=== PATIENT | male | born 1985 | race Caucasian/White ===

== ENCOUNTER → 2018-06-05 20:29 | Outpatient (CLI) | payer SELFPAY | PROVIDERS: Family Provider Family Medicine; PCP Family Medicine; Visit Provider Physician Assistant | DX: J02.9 Acute pharyngitis, unspecified (principal) | CPT/HCPCS: 87070; 87077; 87147 ==

== ENCOUNTER 2022-10-28 15:47 | Emergency (ER) | payer SELFPAY ==
[2022-10-28 16:29] VITALS: BP 139/79; PULSE 81; RESP 16; TEMP 36.6; O2SAT 98; BMI 26.4
--- NOTE | 2022-10-28 16:32 | DI.RAD.S_ITS ---
PROCEDURE: XR ANKLE LT MIN 3V INDICATIONS: ankle injury TECHNIQUE: 3 views of the ankle were acquired. COMPARISON: None. FINDINGS: Bones: Avulsion fracture at the tip of the lateral malleolus. No additional malleolar fractures. Soft tissues: Small tibiotalar joint effusion. Achilles tendon appears normal. Soft tissue swelling about the ankle. IMPRESSION: Avulsion fracture at the tip of the lateral malleolus. No features of an unstable fracture. Dictated by: Gopi Rodriguez M.D. on 10/28/2022 at 16:43 Approved by: Gopi Rodriguez M.D. on 10/28/2022 at 16:45
--- NOTE | 2022-10-28 17:22 | PC.NURSE ---
pt took ibuprofen 800mg at 1400 today.
--- NOTE | 2022-10-28 17:37 | ED.LOWEXIN ---
HPI - Extremity Injury (Lower) <Shiela Leonardo PA-C - Last Filed: 10/28/22 17:56> General Chief Complaint: Extremity Injury, Lower Stated Complaint: lt ankle injury Time Seen by Provider: 10/28/22 17:36 Source: patient Mode of arrival: Wheelchair History of Present Illness HPI Narrative: This is a previously healthy 37-year-old male who presents with concern for left ankle injury. 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 Since that time he is not been able to walk on it it is quite painful especially on the outside of his ankle. Denies any previous surgeries or injuries to this ankle. He has taken 800 mg of ibuprofen with limited relief no other treatments at home. He states this is not going to be a work claim as he owns his own business. Patient denies hitting his head, any headache vision change neck pain loss of consciousness or any other injury. Related Data Previous Rx's Medication Instructions Recorded amoxicillin 500 mg capsule 500 mg PO BID #20 caps 06/05/18 Allergies Allergy/AdvReac Type Severity Reaction Status Date / Time venom-honey bee Allergy Severe Swelling Verified 06/05/18 19:27 [BEE VENOM (HONEY BEE)] Review of Systems <Shiela Leonardo PA-C - Last Filed: 10/28/22 17:56> Review of Systems Narrative: See HPI Patient History <Shiela Leonardo PA-C - Last Filed: 10/28/22 17:56> Family History Mother Cancer Social History Smoking Status: Never smoker Smoking Status: Never smoker alcohol intake frequency: 0-2 drinks per day Substance Use Type: does not use Exam <Shiela Leonardo PA-C - Last Filed: 10/28/22 17:56> Narrative Exam Narrative: GENERAL: 37 year old patient appears stated age. Well-developed patient, in mild distress. HEAD: Atraumatic. Normocephalic. EYES: Pupils equal round and reactive. Extraocular motions intact. No scleral icterus. No injection or drainage. ENT: Nose without bleeding, purulent drainage. Airway patent. NECK: Trachea midline. Non tender CARDIOVASCULAR: Regular rate and rhythm RESPIRATORY: No respiratory distress or increased work of breathing GASTROINTESTINAL: Abdomen soft, non-tender, nondistended. EXTREMITIES: In the injured left lower extremity there is moderate swelling of the ankle most prominent over the lateral malleolus, patient is tender over the distal fibula, with exquisite tenderness over the lateral malleolus. Patient also has some tenderness over the medial malleolus and over the anterior ankle. The bones of the foot are nontender. Patient has significantly reduced range of motion with dorsiflexion of the foot 2nd to pain. There is tenderness over the ATFL with associated swelling. Patient has 2+ pedal pulses. Skin is pink and unbroken with sensation intact. No other edema or joint tenderness. NEURO: AOx3. SKIN: No rash or erythema of visible areas Initial Vital Signs Initial Vital Signs: Vital Signs Temperature 97.9 F 10/28/22 16:29 Pulse Rate 81 10/28/22 16:29 Respiratory Rate 16 10/28/22 16:29 Blood Pressure 139/79 10/28/22 16:29 Pulse Oximetry 98 10/28/22 16:29 Oxygen Delivery Method Room Air 10/28/22 16:29 <Merced Ackerman DO - Last Filed: 10/29/22 08:20> Initial Vital Signs Initial Vital Signs: Vital Signs Temperature 97.9 F 10/28/22 16:29 Pulse Rate 81 10/28/22 16:29 Respiratory Rate 16 10/28/22 16:29 Blood Pressure 139/79 10/28/22 16:29 Pulse Oximetry 98 10/28/22 16:29 Oxygen Delivery Method Room Air 10/28/22 16:29 Course <Shiela Leonardo PA-C - Last Filed: 10/28/22 17:56> Orders Ordered: ED Orders 10/28/22 16:32 XR ankle LT min 3V Stat Vital Signs Vital signs: Vital Signs - 8 hr 10/28/22 16:29 Temperature 97.9 F Pulse Rate 81 Respiratory Rate 16 Blood Pressure 139/79 Pulse Oximetry 98 Oxygen Delivery Method Room Air <Merced Ackerman DO - Last Filed: 10/29/22 08:20> Orders Ordered: ED Orders 10/28/22 16:32 XR ankle LT min 3V Stat Vital Signs Vital signs: Vital Signs - 8 hr 10/28/22 16:29 Temperature 97.9 F Pulse Rate 81 Respiratory Rate 16 Blood Pressure 139/79 Pulse Oximetry 98 Oxygen Delivery Method Room Air MDM - Extremity Injury (Lower) <Shiela Leonardo PA-C - Last Filed: 10/28/22 17:56> Differential Diagnosis Differential diagnosis: Likely ankle sprain and strain, ankle fracture and other (fall) Medical Records Attestation: I reviewed the patient's medical records. Imaging Data Extremity x-ray #1: My Impression: Agree with radiologist's interpretation Radiologist's Impression: [address] [address] XRay Report Signed Patient: Jake Yanes MR#: [id number] : 1985 Acct:[id number] Age/Sex: 37 / M Date of Service: 10/28/22 Loc: ED Accession Number: [id number] ?? Procedure: XR ankle LT min 3V Ordering Provider: Merced Ackerman D.O. PROCEDURE:? XR ANKLE LT MIN 3V ? INDICATIONS:? ankle injury ? TECHNIQUE:? 3 views of the ankle were acquired.? ? COMPARISON:? None. ? FINDINGS:? ? Bones:? Avulsion fracture at the tip of the lateral malleolus.? No additional malleolar fractures. ? Soft tissues:? Small tibiotalar joint effusion.? Achilles tendon appears normal.? Soft tissue swelling about the ankle. ? ? IMPRESSION:? Avulsion fracture at the tip of the lateral malleolus.? No features of an unstable fracture. ? Dictated by: Gopi Rodriguez M.D. on 10/28/2022 at 16:43 ? ? Approved by: Gopi Rodriguez M.D. on 10/28/2022 at 16:45?? Treatment and disposition Shared decision making:: Shared decision-making was used in determining the patient's plan of care today in the emergency department and plan for outpatient follow-up. Discharge Plan Departure Patient Disposition: Home Clinical Impression: Ankle fracture, left, Ankle sprain and strain Activity Restrictions/Additional Instructions: *You have been diagnosed with [avulsion fracture of the left ankle, sprain/strain] *What to do: *Please continue to take your regular medications as directed. [ ] New medication prescriptions sent to your pharmacy: [ ] [ ] New medication written as a paper prescription [* ] No new medications given *Please follow up with your primary care provider in 2-3 days, call for an appointment. Let them know you were seen in the Emergency Department and that we ask that you be seen in follow up. We will electronically transmit a record of today's note if your PCP is in our system. I recommend using the RI CE treatment keeping your leg elevated as much as possible, I would like you to use the crutches provided to stay off of it and be nonweightbearing at least until you see orthopedics, possibly for up to 3 weeks or more depending on how you are doing. We have placed you in a supportive orthopedic boot today I would like you to wear this most of the time although course it is okay to remove your foot occasionally to give it some air. You have a small avulsion fracture at the tip of your fibula the small bone on the outside of your lower leg. You also have sprain with reduced range of motion of her ankle. I have included our orthopedic on-call provider information below although your welcome to see an orthopedic doctor of your choice I would encourage you to get follow-up and be seen within the next week. Please use Tylenol and ibuprofen for pain alternating. *If you do not have a primary care provider please contact the [facility] Resource line at [phone]. They will ask some questions about your medical history and help get you set up with a doctor in the community. *Return to Emergency Department if you should have any new, worsening or concerning symptoms, such as [fever greater than 101 F, shaking chills, worsening pain, persistent vomiting or other bothersome symptoms] Prescriptions: No Action amoxicillin 500 mg capsule 500 mg PO BID Qty: 20 0RF Referrals: Blanquita Morales MD [Physician] - Stand Alone Forms: Patient Portal/API <Merced Ackerman DO - Last Filed: 10/29/22 08:20> Cosign ED Attending Cosignature Attestation: I was immediately available in the department for consultation. Documentation has been reviewed.
== END 2022-10-28 18:01 | disposition home or self-care (01) ==
PROVIDERS: Emergency Provider Student in an Organized Health Care Education/Training Program; Family Provider Family Medicine
DX: S82.62XA Displaced fracture of lateral malleolus of left fibula, initial encounter for closed fracture (principal); W11.XXXA Fall on and from ladder, initial encounter
CPT/HCPCS: 73610; 99283

== ENCOUNTER 2023-09-11 16:32 | Emergency (ER) | payer SELFPAY ==
[2023-09-11] VITALS (17 sets, daily range): BP systolic 135–184; BP diastolic 73–113; PULSE 73–93; RESP 10–22; TEMP 36.7; O2SAT 94–99; BMI 27.0
--- NOTE | 2023-09-11 17:01 | DI.RAD.S_ITS ---
PROCEDURE: XR CHEST 1V INDICATIONS: seizure TECHNIQUE: One view of the chest was acquired. COMPARISON: [facility], , CHEST 2 VIEW, 04/19/2011, 12:17. FINDINGS: Surgical changes and devices: None. Lungs and pleura: Lungs are clear. No pleural effusions or pneumothorax. Mediastinum: Mediastinal contours appear normal. Heart size is normal. Bones and chest wall: No suspicious bony lesions. Overlying soft tissues appear unremarkable. IMPRESSION: No acute cardiopulmonary abnormalities or focal airspace disease. Dictated by: Juan Manuel Harrison M.D. on 09/11/2023 at 17:41 Approved by: Juan Manuel Harrison M.D. on 09/11/2023 at 17:41
--- NOTE | 2023-09-11 17:02 | DI.CT.S_ITS ---
PROCEDURE: CT HEAD/BRAIN WO CON INDICATIONS: reported new onset seizure activity TECHNIQUE: Noncontrast 4.5 mm thick angled axial sections acquired from the foramen magnum to the vertex, with coronal and sagittal reformats. For radiation dose reduction, the following was used: automated exposure control, adjustment of mA and/or kV according to patient size. COMPARISON: [facility], RG, CT HEAD W/O CONTRAST, 02/05/2002, 8:08. [facility], CR, XR CHEST 1V, 09/11/2023, 17:02. FINDINGS: Image quality: Mild streak artifact can be seen through the skull base. CSF spaces: Basal cisterns are patent. No extra-axial fluid collections. Ventricles are normal in size and shape. Brain: No midline shift. No intracranial masses or hemorrhage. Renee-white matter interface is normal. Skull and face: Calvarium and visualized facial bones are intact, without suspicious lesions. Sinuses: There is mild mucosal thickening within the ethmoid air cells, with milder mucosal thickening elsewhere within the paranasal sinuses. No abnormal fluid is seen within the mastoid air cells. IMPRESSION: Unremarkable intracranial study, without a cause of seizure identified. To the limits of this noncontrast study, no findings masses or mass effect can be seen. Dictated by: Farhad Grissom M.D. on 09/11/2023 at 16:53 Approved by: Farhad Grissom M.D. on 09/11/2023 at 16:54
[2023-09-11 17:07] LABS: Add Manual Diff / Slide Review NO; Basophils Absolute Auto 100 /uL (0-100); Basophils Percent Auto 0.7 % (0-2); Eosinophils Absolute Auto 100 /uL (0-450); Eosinophils Percent Auto 1.4 % (2-4); Hematocrit 42.9 % (41-53); Hemoglobin 14.8 g/dL (13.5-17.5); Lymphocytes Absolute Auto 2200 /uL (1100-4500); Lymphocytes Percent Auto 29.5 % (25-40); Mean Corpuscular HGB Conc 34.5 % (30-36); Mean Corpuscular Hemoglobin 30.4 PG (26-34); Mean Corpuscular Volume 88.1 fL (80-100); Monocytes Absolute Auto 600 /uL (0-900); Monocytes Percent Auto 7.9 % (3-14); Neutrophils Absolute Auto 4600 /uL (1500-7000); Neutrophils Percent Auto 60.5 % (50-75); Platelet Count 199 X10^3/uL (150-400); Red Blood Cell Count 4.86 X10^6/uL (4.5-5.9); Red Cell Distribution Width 13.4 % (11.6-14.8); White Blood Cell Count 7.6 X10^3/uL (4.5-11.0)
[2023-09-11 17:17] LABS: Alanine Aminotransferase 20 IU/L (<50); Albumin 4.7 g/dL (3.5-5.0); Alkaline Phosphatase 58 U/L (38-126); Aspartate Aminotransferase 26 IU/L (17-59); BUN Creatinine Ratio 22.2 (6-22); Bilirubin Total 0.6 mg/dL (0.2-1.3); Blood Urea Nitrogen 20 mg/dL (9-20); Calcium 9.4 mg/dL (8.4-10.2); Carbon Dioxide 27 mmol/L (22-32); Chloride 106 mmol/L (98-107); Estimated Glomerular Filt Rate > 60 mL/min (>60); Globulin 2.4 g/dL (1.7-4.1); Glucose 148 mg/dL (70-100); HEMOLYSIS < 15 (0-50); Potassium 3.8 mmol/L (3.4-5.1); Sodium 139 mmol/L (137-145); Total Protein 7.1 g/dL (6.3-8.2)
--- NOTE | 2023-09-11 17:21 | ED.SEIZURE ---
HPI - Seizure <Merced Ackerman DO - Last Filed: 09/12/23 07:45> General Chief Complaint: Seizure Stated Complaint: states seizures Time Seen by Provider: 09/11/23 17:20 Source: patient Mode of arrival: Ambulatory Limitations: no limitations History of Present Illness HPI Narrative: 38-year-old male with no reported medical issues who describes having a seizure a year ago he was never evaluated for and then having several seizure-like episodes this week. He states he can feel an onset of seizure activity shaking he has a brief loss of consciousness and then we will sort of awakened. He states it lasts about 3-4 minutes. He has noticed headaches on the left side, he has had some numbness and weakness on his right side. He states he noticed some lumps on the side of his head as well. He states he has had some nausea and vomiting intermittently this week. Occasional chest pain, no shortness of breath. States no abdominal pain no issues with bowel movements. He did have urinary incontinence with 1 of these episodes. They have not been witnessed by other individuals. He is present with his spouse who notes that he would significant personality change about 4 months ago. She states it actually led to them being . Patient does not have any known medical issues. No known prescription medications. Had prior surgery on his shoulder. No known drug allergies. Patient denies any tobacco, no regular alcohol use, denies any recreational drugs. Related Data Previous Rx's Medication Instructions Recorded hydroxyzine HCl 25 mg tablet 25 mg PO TID PRN anxiety #60 tabs 09/11/23 Allergies Allergy/AdvReac Type Severity Reaction Status Date / Time venom-honey bee Allergy Severe Swelling Verified 09/11/23 17:06 [BEE VENOM (HONEY BEE)] Review of Systems <Merced Ackerman DO - Last Filed: 09/12/23 07:45> Review of Systems ROS Unobtainable: All systems reviewed & are unremarkable except as noted in HPI and below Patient History <Merced Ackerman DO - Last Filed: 09/12/23 07:45> Family History Mother Cancer Social History Smoking Status: Never smoker Smoking Status: Never smoker alcohol intake frequency: other Substance Use Type: marijuana Exam <Merced Ackerman DO - Last Filed: 09/12/23 07:45> Narrative Exam Narrative: GEN: well nourished, well appearing male, alert and oriented x 3, patient appears to be in mild distress. HEENT: Atraumatic, pupils are equal round reactive to light, extraocular movements are intact, no nystagmus, nares are clear, patient some slight swelling in the posterior left auricle, was like possible lymph node is nontender no erythema no other changes. About a cm in size. TMs are clear with no fluid, there is no conjunctival pallor. Throat is clear without any exudates, erythema, tonsillar enlargement or uvular deviation HEART: Regular rate and rhythm without murmur, clicks, rubs. No carotid bruits, pulses are equal in upper and lower extremities LUNGS:Lungs clear to auscultation, no wheezes, rales, crackles, chest moves symmetrically ABD:bowel sounds normal, soft, non-tender, no guarding, rebound, rigidity, no masses noted, no hepatosplenomegaly :No CVA tenderness MSCL: Non-tender, no muscle atrophy, muscles strength 5/5 upper and lower extremities, full range of motion, normal gait NEURO:CN 2-12 intact, sensation normal, reflexes 2/4 upper and lower extremities. finger nose finger test normal, heel cervantes test normal SKIN: No rash, erythema or other skin changes Initial Vital Signs Initial Vital Signs: Vital Signs Temperature 98.1 F 09/11/23 16:44 Pulse Rate 90 09/11/23 16:44 Respiratory Rate 18 09/11/23 16:44 Blood Pressure 159/91 H 09/11/23 16:44 Pulse Oximetry 99 09/11/23 16:44 Oxygen Delivery Method Room Air 09/11/23 16:44 <Merced Mac MD - Last Filed: 09/12/23 01:33> Initial Vital Signs Initial Vital Signs: Vital Signs Temperature 98.1 F 09/11/23 16:44 Pulse Rate 90 09/11/23 16:44 Respiratory Rate 18 09/11/23 16:44 Blood Pressure 159/91 H 09/11/23 16:44 Pulse Oximetry 99 09/11/23 16:44 Oxygen Delivery Method Room Air 09/11/23 16:44 Course <Merced Ackerman DO - Last Filed: 09/12/23 07:45> Orders Ordered: Discontinued Medications Levetiracetam 1,000 mg/ Sodium (Chloride) 110 mls @ 440 mls/hr IV NOW ONE Stop: 09/11/23 17:21 Last Infusion: 09/11/23 17:52 Dose: Infused Documented By: Admin: 09/11/23 17:30 Dose: 440 mls/hr Documented By: RB Vital Signs Vital signs: Vital Signs - 8 hr 09/11/23 17:45 09/11/23 17:45 09/11/23 18:00 Pulse Rate 93 H 89 Respiratory Rate 21 19 Blood Pressure 181/98 H Pulse Oximetry 95 95 Oxygen Delivery Method 09/11/23 18:01 09/11/23 18:01 09/11/23 18:15 Pulse Rate 93 H 91 H Respiratory Rate 18 22 Blood Pressure 184/92 H Pulse Oximetry 96 96 Oxygen Delivery Method 09/11/23 18:15 09/11/23 18:28 09/11/23 18:28 Pulse Rate 79 Respiratory Rate 13 Blood Pressure 175/113 H 154/73 H Pulse Oximetry 99 Oxygen Delivery Method 09/11/23 18:30 09/11/23 18:30 09/11/23 18:45 Pulse Rate 76 77 Respiratory Rate 12 10 L Blood Pressure 154/76 H Pulse Oximetry 97 95 Oxygen Delivery Method 09/11/23 18:45 09/11/23 18:53 09/11/23 18:53 Pulse Rate 75 Respiratory Rate 12 Blood Pressure 148/80 H 151/90 H Pulse Oximetry 96 Oxygen Delivery Method 09/11/23 18:54 09/11/23 19:00 09/11/23 19:00 Pulse Rate 73 78 Respiratory Rate 16 12 Blood Pressure 151/74 H 161/91 H Pulse Oximetry 94 95 Oxygen Delivery Method Room Air 09/11/23 19:30 09/11/23 19:30 Pulse Rate 74 Respiratory Rate 12 Blood Pressure 145/81 H Pulse Oximetry 97 Oxygen Delivery Method <Merced Mac MD - Last Filed: 09/12/23 01:33> Orders Ordered: Discontinued Medications Levetiracetam 1,000 mg/ Sodium (Chloride) 110 mls @ 440 mls/hr IV NOW ONE Stop: 04/14/24 17:21 Last Infusion: 09/11/23 17:52 Dose: Infused Documented By: Admin: 09/11/23 17:30 Dose: 440 mls/hr Documented By: RB Vital Signs Vital signs: Vital Signs - 8 hr 09/11/23 17:45 09/11/23 17:45 09/11/23 18:00 Pulse Rate 93 H 89 Respiratory Rate 21 19 Blood Pressure 181/98 H Pulse Oximetry 95 95 Oxygen Delivery Method 09/11/23 18:01 09/11/23 18:01 09/11/23 18:15 Pulse Rate 93 H 91 H Respiratory Rate 18 22 Blood Pressure 184/92 H Pulse Oximetry 96 96 Oxygen Delivery Method 09/11/23 18:15 09/11/23 18:28 09/11/23 18:28 Pulse Rate 79 Respiratory Rate 13 Blood Pressure 175/113 H 154/73 H Pulse Oximetry 99 Oxygen Delivery Method 09/11/23 18:30 09/11/23 18:30 09/11/23 18:45 Pulse Rate 76 77 Respiratory Rate 12 10 L Blood Pressure 154/76 H Pulse Oximetry 97 95 Oxygen Delivery Method 09/11/23 18:45 09/11/23 18:53 09/11/23 18:53 Pulse Rate 75 Respiratory Rate 12 Blood Pressure 148/80 H 151/90 H Pulse Oximetry 96 Oxygen Delivery Method 09/11/23 18:54 09/11/23 19:00 09/11/23 19:00 Pulse Rate 73 78 Respiratory Rate 16 12 Blood Pressure 151/74 H 161/91 H Pulse Oximetry 94 95 Oxygen Delivery Method Room Air 09/11/23 19:30 09/11/23 19:30 Pulse Rate 74 Respiratory Rate 12 Blood Pressure 145/81 H Pulse Oximetry 97 Oxygen Delivery Method MDM - Seizure <Merced Ackerman, DO - Last Filed: 09/12/23 07:45> Lab Data 09/11/23 16:48 09/11/23 16:48 Labs: Lab Results 09/11/23 09/11/23 09/11/23 Range/Units 16:48 19:16 19:16 WBC 7.6 (4.5-11.0) X10^3/uL RBC 4.86 (4.5-5.9) X10^6/uL Hgb 14.8 (13.5-17.5) g/dL Hct 42.9 (41-53) % MCV 88.1 (80-100) fL MCH 30.4 (26-34) PG MCHC 34.5 (30-36) % RDW 13.4 (11.6-14.8) % Plt Count 199 (150-400) X10^3/uL Neut % (Auto) 60.5 (50-75) % Lymph % (Auto) 29.5 (25-40) % [place] % (Auto) 7.9 (3-14) % Eos % (Auto) 1.4 L (2-4) % Baso % (Auto) 0.7 (0-2) % Neut # (Auto) 4600 (9363-8754) /uL Lymph # (Auto) 2200 (1135-6424) /uL [place] # (Auto) 600 (0-900) /uL Eos # (Auto) 100 (0-450) /uL Baso # (Auto) 100 (0-100) /uL Sodium 139 (137-145) mmol/L Potassium 3.8 (3.4-5.1) mmol/L Chloride 106 (98-107) mmol/L Carbon Dioxide 27 (22-32) mmol/L BUN 20 (9-20) mg/dL Creatinine 0.90 (0.66-1.25) mg/dL Estimated GFR > 60 (>60) mL/min BUN/Creatinine Ratio 22.2 H (6-22) Glucose 148 H (70-100) mg/dL Calcium 9.4 (8.4-10.2) mg/dL Total Bilirubin 0.6 (0.2-1.3) mg/dL AST 26 (17-59) IU/L ALT 20 (<50) IU/L Alkaline Phosphatase 58 (38-126) U/L Total Protein 7.1 (6.3-8.2) g/dL Albumin 4.7 (3.5-5.0) g/dL Globulin 2.4 (1.7-4.1) g/dL Albumin/Globulin Ratio 2.0 (1.0-2.8) TSH 1.09 (0.47-4.68) uIU/mL Urine Color Yellow Urine Appearance Clear Urine pH 6.0 Normal (4.5-8.0) Ur Specific [place] 1.025 (1.000-1.035) Urine Protein Negative (Negative) Urine Glucose (UA) Negative (Negative) g/dL Urine Ketones Negative (NEGATIVE) Urine Occult Blood Negative (Negative) Urine Nitrate Negative (Negative) Urine Bilirubin Negative (NEGATIVE) Urine Urobilinogen 1.0 (0.2) E.U./dL Ur Leukocyte Esterase Negative (NEGATIVE) Urine RBC None seen (0-5/HPF) Urine WBC 0-1/hpf (0-5/HPF) Ur Squamous Epith Cells 0-1 /hpf (0-5/HPF) Urine Bacteria Occasional (0-1) (None) Ur Culture Indicated? Cult not indicated Vol Urine Centrifuged 10ml (spun) U Opiates 300ng/mL cut Negative (Negative) Ur Oxycodone Screen Negative (Negative) Urine Methadone Screen Negative (Negative) Ur Barbiturates Screen Negative (Negative) U Tricyclic Antidepress Negative (Negative) Ur Phencyclidine Scrn Negative (Negative) Ur Amphetamines Screen Negative (Negative) U Methamphetamines Scrn Negative (Negative) Ur MDMA Scrn (Ecstasy) Negative (Negative) U Benzodiazepines Scrn Negative (Negative) Urine Cocaine Screen Negative (Negative) U Marijuana (THC) Screen Positive H (Negative) Urine Specific [place] Normal (Normal) Ethyl Alcohol < 10 ( - 10) mg/dL Ur Creatinine Normal (Normal) MDM Narrative Medical decision making narrative: Patient signed out to Dr. Mac while awaiting workup. Patient is describing possible seizure-like activity but does have awareness during majority of it. Had 1 episode where he describes incontinence but no with others. None of these episodes have been witnessed by other individuals. Care of patient is signed out to me by daytime physician. Patient reassessed, he was reporting increasing anxiety about what could possibly be going on and causing his symptoms. I asked patient to explained in detail what his events were like. Patient states that he will feel a panic attack on coming and he we will start by jerking back and forth movements that then spread to his legs. He tells me that he was aware of what is going on the entire time but he was very freaked out because he can not seem to make it stop. Today patient states that his most recent attack was severe and after he finished shaking he stood up and that is when he urinated on himself. Patient's description of the events do not appear to be consistent with true epilepsy, rather more anxiety based. Patient advised that he would need an EEG to determine if these are seizures or something else and Neurology referral provided. Counseled against driving if having seizure-like activity unless he was 6 months activity free. <Merced Mac MD - Last Filed: 09/12/23 01:33> Lab Data Labs: Lab Results 09/11/23 09/11/23 09/11/23 Range/Units 16:48 19:16 19:16 WBC 7.6 (4.5-11.0) X10^3/uL RBC 4.86 (4.5-5.9) X10^6/uL Hgb 14.8 (13.5-17.5) g/dL Hct 42.9 (41-53) % MCV 88.1 (80-100) fL MCH 30.4 (26-34) PG MCHC 34.5 (30-36) % RDW 13.4 (11.6-14.8) % Plt Count 199 (150-400) X10^3/uL Neut % (Auto) 60.5 (50-75) % Lymph % (Auto) 29.5 (25-40) % [place] % (Auto) 7.9 (3-14) % Eos % (Auto) 1.4 L (2-4) % Baso % (Auto) 0.7 (0-2) % Neut # (Auto) 4600 (7740-5431) /uL Lymph # (Auto) 2200 (5960-4469) /uL [place] # (Auto) 600 (0-900) /uL Eos # (Auto) 100 (0-450) /uL Baso # (Auto) 100 (0-100) /uL Sodium 139 (137-145) mmol/L Potassium 3.8 (3.4-5.1) mmol/L Chloride 106 (98-107) mmol/L Carbon Dioxide 27 (22-32) mmol/L BUN 20 (9-20) mg/dL Creatinine 0.90 (0.66-1.25) mg/dL Estimated GFR > 60 (>60) mL/min BUN/Creatinine Ratio 22.2 H (6-22) Glucose 148 H (70-100) mg/dL Calcium 9.4 (8.4-10.2) mg/dL Total Bilirubin 0.6 (0.2-1.3) mg/dL AST 26 (17-59) IU/L ALT 20 (<50) IU/L Alkaline Phosphatase 58 (38-126) U/L Total Protein 7.1 (6.3-8.2) g/dL Albumin 4.7 (3.5-5.0) g/dL Globulin 2.4 (1.7-4.1) g/dL Albumin/Globulin Ratio 2.0 (1.0-2.8) TSH 1.09 (0.47-4.68) uIU/mL Urine Color Yellow Urine Appearance Clear Urine pH 6.0 Normal (4.5-8.0) Ur Specific [place] 1.025 (1.000-1.035) Urine Protein Negative (Negative) Urine Glucose (UA) Negative (Negative) g/dL Urine Ketones Negative (NEGATIVE) Urine Occult Blood Negative (Negative) Urine Nitrate Negative (Negative) Urine Bilirubin Negative (NEGATIVE) Urine Urobilinogen 1.0 (0.2) E.U./dL Ur Leukocyte Esterase Negative (NEGATIVE) Urine RBC None seen (0-5/HPF) Urine WBC 0-1/hpf (0-5/HPF) Ur Squamous Epith Cells 0-1 /hpf (0-5/HPF) Urine Bacteria Occasional (0-1) (None) Ur Culture Indicated? Cult not indicated Vol Urine Centrifuged 10ml (spun) U Opiates 300ng/mL cut Negative (Negative) Ur Oxycodone Screen Negative (Negative) Urine Methadone Screen Negative (Negative) Ur Barbiturates Screen Negative (Negative) U Tricyclic Antidepress Negative (Negative) Ur Phencyclidine Scrn Negative (Negative) Ur Amphetamines Screen Negative (Negative) U Methamphetamines Scrn Negative (Negative) Ur MDMA Scrn (Ecstasy) Negative (Negative) U Benzodiazepines Scrn Negative (Negative) Urine Cocaine Screen Negative (Negative) U Marijuana (THC) Screen Positive H (Negative) Urine Specific [place] Normal (Normal) Ethyl Alcohol < 10 ( - 10) mg/dL Ur Creatinine Normal (Normal) MDM Narrative Medical decision making narrative: Care of patient is signed out to me by daytime physician. Patient reassessed, he was reporting increasing anxiety about what could possibly be going on and causing his symptoms. I asked patient to explained in detail what his events were like. Patient states that he will feel a panic attack on coming and he we will start by jerking back and forth movements that then spread to his legs. He tells me that he was aware of what is going on the entire time but he was very freaked out because he can not seem to make it stop. Today patient states that his most recent attack was severe and after he finished shaking he stood up and that is when he urinated on himself. Patient's description of the events do not appear to be consistent with true epilepsy, rather more anxiety based. Patient advised that he would need an EEG to determine if these are seizures or something else and Neurology referral provided. Counseled against driving if having seizure-like activity unless he was 6 months activity free. Discharge Plan Departure Patient Disposition: Home Clinical Impression: Seizure-like activity, Anxiety Instructions: DI for Seizure (Not Epilepsy/Seizure Disorder) Activity Restrictions/Additional Instructions: Your laboratory work and CT imaging today were normal. No obvious cause for your symptoms were found today. I recommend following up with a neurologist as well as a primary care physician. The neurologist can do further workup on your seizure-like activity, and your primary care doctor can help you start treatment for anxiety. In the meantime an as-needed anxiety medication has been sent to your pharmacy. In someone with seizures it was recommended to not drive or perform dangerous activities until you are 6 months seizure-free. I can not formally diagnosed with seizures, however since you were reporting seizure activity you should not drive until otherwise cleared by primary care or neurology Prescriptions: New hydroxyzine HCl 25 mg tablet 25 mg PO TID PRN (Reason: anxiety) Qty: 60 0RF Stand Alone Forms: Patient Portal/API
[2023-09-11] MEDS: levETIRAcetam 1,000 MG in SODIUM CHLORIDE 0.9% 100 ML 440 MG IV (17:30)
[2023-09-11 17:32] LABS: Ethanol (ETOH) < 10 mg/dL
[2023-09-11 18:03] LABS: Thyroid Stimulating Hormone 1.09 uIU/mL (0.47-4.68)
[2023-09-11 19:19] LABS: Appearance Urine UA CLEAR; Bilirubin Urine UA NEGATIVE (NEGATIVE); Color Urine UA YELLOW; Glucose Urine UA NEGATIVE (Negative); Ketones Urine UA NEGATIVE (NEGATIVE); Leukocyte Esterase Urine UA NEGATIVE (NEGATIVE); Nitrite Urine UA NEGATIVE (Negative); Occult Blood Urine UA NEGATIVE (Negative); Protein Urine UA NEGATIVE (Negative); Specific Gravity Urine UA 1.025 (1.000-1.035)
[2023-09-11 19:24] LABS: UR Morphine/Opiate cutoff 300 Negative (Negative); Ur Creatinine Normal (Normal); Ur Specific Gravity Normal (Normal); Urine Amphetamines Negative (Negative); Urine Barbiturates Negative (Negative); Urine Benzodiazepines Negative (Negative); Urine Cocaine Negative (Negative); Urine MDMA Negative (Negative); Urine Methadone Negative (Negative); Urine Methamphetamines Negative (Negative); Urine Oxycodone Negative (Negative); Urine Phencyclidine Negative (Negative); Urine Tetrahydrocannabinol Positive (Negative); Urine Tricyclic Antidepressant Negative (Negative); Urine pH Normal (Normal)
[2023-09-11 19:26] LABS: Bacteria Urine Occasional (0-1); Culture Indicated Urine Cult Not Indicated; RBC Urine None Seen (0-5/HPF); Squamous Epithelial Cell Urine 0-1 /HPF (0-5/HPF); Urine Volume 10mL (spun); WBC Urine 0-1/HPF (0-5/HPF)
== END 2023-09-11 19:51 | disposition home or self-care (01) ==
PROVIDERS: Emergency Provider Emergency Medicine; Family Provider Family Medicine
DX: R56.9 Unspecified convulsions (principal); F41.9 Anxiety disorder, unspecified
CPT/HCPCS: 36415; 70450; 71045; 80053; 80305; 80320; 81001; 84443; 85025; 93005; 96365; 99284; J1953